=== PATIENT | female | born 1995 | race African-American/Black ===

== ENCOUNTER 2016-10-20 10:41 | Emergency (ER) | payer SELFPAY ==
[~2016-10-20] VITALS: Ht 165.1 cm; Wt 91.0 kg
[2016-10-20 12:00] VITALS: BP 114/65
[2016-10-20 12:05] LABS: GLUCOSE URINE NEGATIVE (NEGATIVE); KETONES URINE TRACE (NEGATIVE); LEUKOCYTE ESTERASE URINE 1+ (NEGATIVE); NITRITE URINE NEGATIVE (NEGATIVE); OCCULT BLOOD URINE NEGATIVE (NEGATIVE); PROTEIN URINE TRACE (NEGATIVE); SPECIFIC GRAVITY URINE 1.031 (1.005-1.030)
[2016-10-20 12:07] LABS: CLARITY URINE SL HAZY (CLEAR); COLOR URINE DARK YELLOW (YELLOW)
== END 2016-10-20 13:47 | disposition home or self-care (01) ==
LOC: ER 11:56
DX: N39.0 Urinary tract infection, site not specified (principal); N76.0 Acute vaginitis; H60.91 Unspecified otitis externa, right ear; F17.200 Nicotine dependence, unspecified, uncomplicated; Z11.3 Encounter for screening for infections with a predominantly sexual mode of transmission
CPT/HCPCS: 81001; 81025; 87210; 87491; 87591; 99284

== ENCOUNTER 2017-10-01 06:02 | Emergency (ER) | payer MEDICAID ==
[~2017-10-01] VITALS: Ht 165.1 cm; Wt 114.0 kg
[2017-10-01 07:54] LABS: CLARITY URINE CLEAR (CLEAR); COLOR URINE YELLOW (YELLOW); KETONES URINE NEGATIVE (NEGATIVE); LEUKOCYTE ESTERASE URINE NEGATIVE (NEGATIVE); NITRITE URINE NEGATIVE (NEGATIVE); OCCULT BLOOD URINE NEGATIVE (NEGATIVE); PH URINE 5.5 (4.5-8.0); PROTEIN URINE NEGATIVE (NEGATIVE); SPECIFIC GRAVITY URINE 1.029 (1.005-1.030)
[2017-10-01] MEDS ORDERED: RALTEGRAVIR 400MG TABLET PO ONE (09:00)
[2017-10-01] MEDS ORDERED: CEFTRIAXONE SODIUM 250 MG/VIAL IM ONE (09:00)
[2017-10-01] MEDS ORDERED: TENOFOVIR 300MG TABLET PO ONE (09:00)
[2017-10-01] MEDS ORDERED: EMTRICITABINE 200MG CAPSULE PO ONE (09:00)
[2017-10-01] MEDS ORDERED: LIDOCAINE HCL/PF 1% 10 MG/ML 30ML VIAL INFIL ONE (09:00)
[2017-10-01] MEDS ORDERED: AZITHROMYCIN 500 MG TABLET PO ONE (09:00)
[2017-10-01 09:38] LABS: HCG SCREEN NEGATIVE
[2017-10-01] MEDS ORDERED: LIDOCAINE HCL/PF 1% 10 MG/ML 5ML VIAL ONE (10:33)
[2017-10-01 12:40] VITALS: BP 118/80
== END 2017-10-01 12:45 | disposition home or self-care (01) ==
LOC: ER 06:02
DX: Z20.6 Contact with and (suspected) exposure to human immunodeficiency virus [HIV] (principal)
CPT/HCPCS: 81003; 81025; 84703; 86703; 96372; 99284; J0696; J3490; Z7610

== ENCOUNTER 2020-05-14 14:30 | Emergency (ER) | payer SELFPAY ==
[~2020-05-14] VITALS: Ht 162.6 cm; Wt 81.0 kg
[2020-05-14] MEDS ORDERED: SODIUM CHLORIDE 0.9% 1,000 ML IV ONE ×2 (15:00→15:45)
[2020-05-14 15:14] LABS: BASOPHILS % 0.4 % (0.0-2.0); CHLORIDE 108 mEq/L (98-107); EOSINOPHILS % 0.2 % (0.0-5.0); HEMATOCRIT. 40.4 % (36.0-48.0); HEMOGLOBIN. 13.1 g/dL (12.0-16.0); LYMPHOCYTES % 14.7 % (20.0-50.0); MEAN CORPUSCULAR HEMOGLOBIN 26.2 pg (28.0-32.0); MEAN CORPUSCULAR VOLUME 80.9 fL (81.0-99.0); MEAN PLATELET VOLUME 8.6 fl (7.4-10.4); MONOCYTES % 5.9 % (2.0-8.0); NEUTROPHILS % 78.8 % (40.0-76.0); PLATELET 300 x1000/uL (130-400); RED BLOOD CELL COUNT 4.99 mill/uL (4.2-5.4); RED CELL DISTRIBUTION WIDTH 15.4 % (11.6-14.6)
[2020-05-14 15:18] LABS: ETHANOL BLOOD < 10 mg/dL
[2020-05-14 15:24] LABS: HCG SCREEN NEGATIVE
[2020-05-14] MEDS ORDERED: POTASSIUM CHLORIDE 20MEQ TABLET SR PO SCH (18:00)
[2020-05-14] MEDS ORDERED: LORAZEPAM 1MG TABLET PO SCH (18:00)
[2020-05-14 19:38] VITALS: BP 121/80
== END 2020-05-14 19:39 | disposition home or self-care (01) ==
LOC: ER 14:30
DX: T40.991A Poisoning by other psychodysleptics [hallucinogens], accidental (unintentional), initial encounter (principal); Y92.59 Other trade areas as the place of occurrence of the external cause
CPT/HCPCS: 36415; 80053; 80307; 80320; 80329; 84703; 85025; 96360; 96361; 99283; J7030; Z7610; 80305; G0480

== ENCOUNTER 2020-05-15 02:58 | Emergency (ER) | payer SELFPAY ==
[~2020-05-15] VITALS: Ht 165.1 cm; Wt 101.0 kg
[2020-05-15 03:53] VITALS: BP 126/77
== END 2020-05-15 03:55 | disposition home or self-care (01) ==
LOC: ER 02:58
DX: T43.641A Poisoning by ecstasy, accidental (unintentional), initial encounter (principal); Y92.9 Unspecified place or not applicable
CPT/HCPCS: 93005; 99283